=== PATIENT | male | born 1980 | race Caucasian/White ===

== ENCOUNTER 2021-11-10 12:44 | Emergency (ER) | payer SELFPAY ==
[~2021-11-10] VITALS: Ht 165 cm; Wt 63.0 kg
--- NOTE | 2021-11-10 15:38 | ED Abdominal Pain ---
General Chief Complaint: Abdominal/GI Problems Stated Complaint: EPIGASTRIC PAIN Nursing Triage Note: Pt reports midline abd pain starting at 0800 this morning. Denies n/v/d. Source of Information: Patient Exam Limitations: No Limitations History of Present Illness Date Seen by Provider: Nov 10, 2021 Time Seen by Provider: 15:37 Initial Comments Private vehicle with reports of midline upper abdominal pain onset this morning. He felt fine last night. No history of this. No nausea or vomiting. Last bowel movement was today and was normal. Timing/Duration: 12 Hours Severity/Quality: Moderate Location: Generalized Abdomen Radiation: No Radiation Activities at Onset: None Allergies and Home Medications Allergies Coded Allergies: No Known Drug Allergies (Unverified , 11/10/21) Patient Home Medication List Home Medication List Reviewed: Yes Review of Systems Review of Systems Constitutional: see HPI EENTM: No Symptoms Reported Respiratory: No Symptoms Reported Cardiovascular: No Symptoms Reported Gastrointestinal: See HPI, Abdominal Pain, Nausea Genitourinary: No Symptoms Reported Musculoskeletal: no symptoms reported Skin: no symptoms reported Psychiatric/Neurological: No Symptoms Reported Endocrine: No Symptoms Reported Hematologic/Lymphatic: No Symptoms Reported Past Ayhrluh-Hzfyjo-Jhlrra Hx Patient Social History Tobacco Use?: No Substance use?: No Alcohol Use?: No Physical Exam Vital Signs Vital Signs - First Documented 11/10/21 14:52 Temp 36.9 Pulse 76 Resp 18 B/P (MAP) 128/77 (94) Pulse Ox 98 O2 Delivery Room Air Capillary Refill : Less Than 3 Seconds Height/Weight/BMI Height: '" Weight: lbs. oz. kg; 23.00 BMI Method: General Appearance: WD/WN, no apparent distress HEENT: PERRL/EOMI, normal ENT inspection Neck: non-tender, full range of motion Respiratory: no respiratory distress, no accessory muscle use Cardiovascular: regular rate, rhythm, no murmur Gastrointestinal: normal bowel sounds, soft, tenderness (Epigastric) Extremities: normal range of motion, non-tender Neurologic/Psychiatric: alert, normal mood/affect, oriented x 3 Skin: normal color, warm/dry Progress/Results/Core Measures Results/Orders Lab Results Laboratory Tests Test 11/10/21 15:54 Range/Units White Blood Count 9.9 4.3-11.0 10^3/uL Red Blood Count 5.48 4.30-5.52 10^6/uL Hemoglobin 15.2 13.3-17.7 g/dL Hematocrit 46 40-54 % Mean Corpuscular Volume 85 80-99 fL Mean Corpuscular Hemoglobin 28 25-34 pg Mean Corpuscular Hemoglobin Concent 33 32-36 g/dL Red Cell Distribution Width 13.2 10.0-14.5 % Platelet Count 249 130-400 10^3/uL Mean Platelet Volume 11.0 9.0-12.2 fL Immature Granulocyte % (Auto) 0 % Neutrophils (%) (Auto) 81 H 42-75 % Lymphocytes (%) (Auto) 14 12-44 % Monocytes (%) (Auto) 4 0-12 % Eosinophils (%) (Auto) 0 0-10 % Basophils (%) (Auto) 0 0-10 % Neutrophils # (Auto) 8.1 H 1.8-7.8 X 10^3 Lymphocytes # (Auto) 1.4 1.0-4.0 X 10^3 Monocytes # (Auto) 0.4 0.0-1.0 X 10^3 Eosinophils # (Auto) 0.0 0.0-0.3 10^3/uL Basophils # (Auto) 0.0 0.0-0.1 10^3/uL Immature Granulocyte # (Auto) 0.0 0.0-0.1 10^3/uL Prothrombin Time 12.7 12.2-14.7 SEC INR Comment 0.9 0.8-1.4 Sodium Level 143 135-145 MMOL/L Potassium Level 4.1 3.6-5.0 MMOL/L Chloride Level 104 98-107 MMOL/L Carbon Dioxide Level 24 21-32 MMOL/L Anion Gap 15 H 5-14 MMOL/L Blood Urea Nitrogen 10 7-18 MG/DL Creatinine 0.81 0.60-1.30 MG/DL Estimat Glomerular Filtration Rate 115 BUN/Creatinine Ratio 12 Glucose Level 118 H 70-105 MG/DL Calcium Level 10.0 8.5-10.1 MG/DL Corrected Calcium 9.7 8.5-10.1 MG/DL Total Bilirubin 0.5 0.1-1.0 MG/DL Aspartate Amino Transf (AST/SGOT) 20 5-34 U/L Alanine Aminotransferase (ALT/SGPT) 26 0-55 U/L Alkaline Phosphatase 94 40-136 U/L Total Protein 7.6 6.4-8.2 GM/DL Albumin 4.4 3.2-4.5 GM/DL Lipase 14 8-78 U/L Serum Alcohol < 10 <10 MG/DL My Orders Orders - MERLENE FRY [employer] TECHNICIAN Us Gallbladder [id number] (11/10/21 15:34) Lipase (11/10/21 15:34) Cbc With Automated Diff (11/10/21 15:34) Comprehensive Metabolic Panel (11/10/21 15:34) Ed Iv/Invasive Line Start (11/10/21 15:34) Protime With Inr (11/10/21 15:34) Alcohol (11/10/21 15:34) Fentanyl Inj (Sublimaze Injection) (11/10/21 15:45) Antacid Suspension (Mylanta Suspension (11/10/21 16:15) Lidocaine 2% Viscous 15 Ml (Xylocaine Vi (11/10/21 16:15) Acute Abd Series (11/10/21 16:12) Medications Given in ED Current Medications Medications Dose Ordered Sig/Gerardo Route Start Time Stop Time Status Last Admin Dose Admin Al Hydrox/Mg Hydrox/Simethicone 30 ml ONCE ONCE PO 11/10/21 16:15 11/10/21 16:16 DC 11/10/21 16:56 30 ML Fentanyl Citrate 50 mcg ONCE ONCE IVP 11/10/21 15:45 11/10/21 15:46 DC 11/10/21 15:45 50 MCG Lidocaine HCl 15 ml ONCE ONCE PO 11/10/21 16:15 11/10/21 16:16 DC 11/10/21 16:56 15 ML Vital Signs/I&O 11/10/21 14:52 Temp 36.9 Pulse 76 Resp 18 B/P (MAP) 128/77 (94) Pulse Ox 98 O2 Delivery Room Air Blood Pressure Mean: 94 Departure Communication (Admissions) 1713- feeling much better at this time after the GI cocktail. Gallbladder ultrasound unremarkable acute abdominal series unremarkable labs unremarkable. He states that he awakens at night quite frequently with a hungry sensation in his stomach. Discussed with him using language line to the diagnosis of GERD/pe ptic ulcer disease. I will put him on [id number] and have him follow-up with surgery for possible endoscopy. Impression Primary Impression: Peptic ulcer disease Disposition: 01 HOME, SELF-CARE Condition: Stable Departure-Patient Inst. Decision time for Depature: 17:13 Referrals: [facility] (PCP/Family) Primary Care Physician GUILLERMO BUNDY BRETT D DO KIDO, TAKAAKI MD Patient Instructions: Peptic Ulcers Scripts Pantoprazole Sodium (Protonix) 40 Mg Tablet. 40 MG PO DAILY, #30 TAB 1 Refill Prov: MERLENE FRY APRN 11/10/21 Work/School Note: Work Release Form Date Seen in the Emergency Department: Nov 10, 2021 Return to Work: Nov 11, 2021 MERLENE FRY APRN Nov 10, 2021 15:38
--- NOTE | 2021-11-10 15:43 | ED Abdominal Pain ---
General Chief Complaint: Abdominal/GI Problems Stated Complaint: EPIGASTRIC PAIN Nursing Triage Note: Pt reports midline abd pain starting at 0800 this morning. Denies n/v/d. History of Present Illness Date Seen by Provider: Nov 10, 2021 Time Seen by Provider: 15:30 Initial Comments PT ARRIVED BY PRIVATE VEHICLE WITH CHIEF COMPLAINT OF ABDOMINAL PAIN. PT WAS ALERT, ORIENTED X4 AND AMBULATORY. PT STATED ONSET WAS 0900 THIS MORNING ABOUT 30 MINUTES AFTER EATING HIS BREAKFAST (FRUITS). PT LOCALIZES HIS PAIN TO BE LOCATED AT THE EPIGASTRIC REGION. PT STATED IS IS TENDER AND RATES SEVERITY AT A 9/10. PT DENIES ANY PAIN ON LEFT OR RIGHT LOWER QUADRANTS. PT STATED THAT 3 HOURS AGO HE HAD "GAS" PAIN LOCATED IN THAT REGION, BUT WENT AWAY AND HAS HAD PAIN SINCE. PT HAS HAD NORMAL BOWEL MOVEMENTS TODAY AND YESTERDAY. PT DENIES ANY NAUSEA, VOMITING, OR DIARRHEA. PT DENIES EVER HAVING THIS PAIN BEFORE. Timing/Duration: 4-6 Hours (0900 THIS MORNING) Severity/Quality: Severe, Other (9/10 ON PAIN SCALE, COMES AND GOES) Location: Epigastric Radiation: No Radiation Activities at Onset: Other (AFTER EATING HIS BREAKFAST THIS MORNING) Associated Symptoms: Heartburn; No Nausea/Vomiting Allergies and Home Medications Allergies Coded Allergies: No Known Drug Allergies (Unverified , 11/10/21) Patient Home Medication List Pantoprazole Sodium (Protonix) 40 Mg Tablet., 40 MG PO DAILY Prescribed by: MERLENE FRY on 11/10/21 9307 Review of Systems Review of Systems Constitutional: no symptoms reported, see HPI EENTM: No Symptoms Reported, See HPI Respiratory: No Symptoms Reported, See HPI Cardiovascular: No Symptoms Reported, See HPI Gastrointestinal: Abdominal Pain; Denies Constipated, Denies Diarrhea, Denies Nausea, Denies Vomiting Genitourinary: No Symptoms Reported, See HPI Musculoskeletal: no symptoms reported, see HPI Skin: no symptoms reported, see HPI Psychiatric/Neurological: No Symptoms Reported, See HPI Endocrine: No Symptoms Reported, See HPI Hematologic/Lymphatic: No Symptoms Reported, See HPI Past Saaqozn-Kcejji-Dayhro Hx Patient Social History Tobacco Use?: No Substance use?: No Alcohol Use?: No Physical Exam Vital Signs Vital Signs - First Documented 11/10/21 14:52 Temp 36.9 Pulse 76 Resp 18 B/P (MAP) 128/77 (94) Pulse Ox 98 O2 Delivery Room Air Capillary Refill : Less Than 3 Seconds Height/Weight/BMI Height: '" Weight: lbs. oz. kg; 23.00 BMI Method: General Appearance: mild distress Neck: full range of motion, normal inspection Respiratory: normal breath sounds, no respiratory distress, no accessory muscle use Cardiovascular: normal peripheral pulses, regular rate, rhythm Gastrointestinal: normal bowel sounds, tenderness Extremities: normal range of motion, normal inspection Back: normal inspection Neurologic/Psychiatric: alert, normal mood/affect Skin: normal color, warm/dry Progress/Results/Core Measures Results/Orders Lab Results Laboratory Tests Test 11/10/21 15:54 Range/Units White Blood Count 9.9 4.3-11.0 10^3/uL Red Blood Count 5.48 4.30-5.52 10^6/uL Hemoglobin 15.2 13.3-17.7 g/dL Hematocrit 46 40-54 % Mean Corpuscular Volume 85 80-99 fL Mean Corpuscular Hemoglobin 28 25-34 pg Mean Corpuscular Hemoglobin Concent 33 32-36 g/dL Red Cell Distribution Width 13.2 10.0-14.5 % Platelet Count 249 130-400 10^3/uL Mean Platelet Volume 11.0 9.0-12.2 fL Immature Granulocyte % (Auto) 0 % Neutrophils (%) (Auto) 81 H 42-75 % Lymphocytes (%) (Auto) 14 12-44 % Monocytes (%) (Auto) 4 0-12 % Eosinophils (%) (Auto) 0 0-10 % Basophils (%) (Auto) 0 0-10 % Neutrophils # (Auto) 8.1 H 1.8-7.8 X 10^3 Lymphocytes # (Auto) 1.4 1.0-4.0 X 10^3 Monocytes # (Auto) 0.4 0.0-1.0 X 10^3 Eosinophils # (Auto) 0.0 0.0-0.3 10^3/uL Basophils # (Auto) 0.0 0.0-0.1 10^3/uL Immature Granulocyte # (Auto) 0.0 0.0-0.1 10^3/uL Prothrombin Time 12.7 12.2-14.7 SEC INR Comment 0.9 0.8-1.4 Sodium Level 143 135-145 MMOL/L Potassium Level 4.1 3.6-5.0 MMOL/L Chloride Level 104 98-107 MMOL/L Carbon Dioxide Level 24 21-32 MMOL/L Anion Gap 15 H 5-14 MMOL/L Blood Urea Nitrogen 10 7-18 MG/DL Creatinine 0.81 0.60-1.30 MG/DL Estimat Glomerular Filtration Rate 115 BUN/Creatinine Ratio 12 Glucose Level 118 H 70-105 MG/DL Calcium Level 10.0 8.5-10.1 MG/DL Corrected Calcium 9.7 8.5-10.1 MG/DL Total Bilirubin 0.5 0.1-1.0 MG/DL Aspartate Amino Transf (AST/SGOT) 20 5-34 U/L Alanine Aminotransferase (ALT/SGPT) 26 0-55 U/L Alkaline Phosphatase 94 40-136 U/L Total Protein 7.6 6.4-8.2 GM/DL Albumin 4.4 3.2-4.5 GM/DL Lipase 14 8-78 U/L Serum Alcohol < 10 <10 MG/DL My Orders Orders - MERLENE FRY APRN Us Gallbladder [id number] (11/10/21 15:34) Lipase (11/10/21 15:34) Cbc With Automated Diff (11/10/21 15:34) Comprehensive Metabolic Panel (11/10/21 15:34) Ed Iv/Invasive Line Start (11/10/21 15:34) Protime With Inr (11/10/21 15:34) Alcohol (11/10/21 15:34) Fentanyl Inj (Sublimaze Injection) (11/10/21 15:45) Antacid Suspension (Mylanta Suspension (11/10/21 16:15) Lidocaine 2% Viscous 15 Ml (Xylocaine Vi (11/10/21 16:15) Acute Abd Series (11/10/21 16:12) Medications Given in ED Current Medications Medications Dose Ordered Sig/Gerardo Route Start Time Stop Time Status Last Admin Dose Admin Al Hydrox/Mg Hydrox/Simethicone 30 ml ONCE ONCE PO 11/10/21 16:15 11/10/21 16:16 DC 11/10/21 16:56 30 ML Fentanyl Citrate 50 mcg ONCE ONCE IVP 11/10/21 15:45 11/10/21 15:46 DC 11/10/21 15:45 50 MCG Lidocaine HCl 15 ml ONCE ONCE PO 11/10/21 16:15 11/10/21 16:16 DC 11/10/21 16:56 15 ML Vital Signs/I&O 11/10/21 14:52 Temp 36.9 Pulse 76 Resp 18 B/P (MAP) 128/77 (94) Pulse Ox 98 O2 Delivery Room Air Blood Pressure Mean: 94 Departure Departure-Patient Inst. Referrals: [facility] (PCP/Family) Primary Care Physician Scripts Pantoprazole Sodium (Protonix) 40 Mg Tablet. 40 MG PO DAILY, #30 TAB 1 Refill Prov: MERLENE FRY APRN 11/10/21 MERLENE FRY APRN Nov 10, 2021 15:43
[2021-11-10] MEDS ORDERED: fentaNYL INJ 100 MCG/2 ML AMP IVP ONE (15:45)
[2021-11-10 16:04] LABS: BASOPHILS % (AUTO) 0 % (0-10); EOSINOPHILS % (AUTO) 0 % (0-10); HEMATOCRIT 46 % (40-54); HEMOGLOBIN 15.2 g/dL (13.3-17.7); LYMPHOCYTES # (AUTO) 1.4 X 10^3 (1.0-4.0); LYMPHOCYTES % (AUTO) 14 % (12-44); MEAN CORPUSCULAR HEMOGLOBIN 28 pg (25-34); MEAN CORPUSCULAR HGB CONC 33 g/dL (32-36); MEAN CORPUSCULAR VOLUME 85 fL (80-99); MONOCYTES # (AUTO) 0.4 X 10^3 (0.0-1.0); MONOCYTES % (AUTO) 4 % (0-12); NEUTROPHILS # (AUTO) 8.1 X 10^3 (1.8-7.8); NEUTROPHILS % (AUTO) 81 % (42-75); PLATELET COUNT 249 10^3/uL (130-400); WHITE BLOOD COUNT 9.9 10^3/uL (4.3-11.0)
[2021-11-10 16:05] LABS: ALBUMIN 4.4 GM/DL (3.2-4.5); CHLORIDE 104 MMOL/L (98-107); POTASSIUM 4.1 MMOL/L (3.6-5.0); SODIUM 143 MMOL/L (135-145)
[2021-11-10 16:08] LABS: GLUCOSE 118 MG/DL (70-105); TOTAL PROTEIN 7.6 GM/DL (6.4-8.2)
[2021-11-10 16:09] LABS: CARBON DIOXIDE 24 MMOL/L (21-32)
[2021-11-10 16:10] LABS: BILIRUBIN,TOTAL 0.5 MG/DL (0.1-1.0)
[2021-11-10 16:11] LABS: ALKALINE PHOSPHATASE 94 U/L (40-136)
[2021-11-10 16:12] LABS: CREATININE SERUM 0.81 MG/DL (0.60-1.30); GFR ESTIMATED 115
[2021-11-10 16:13] LABS: BUN/CREATININE RATIO 12
[2021-11-10 16:15] LABS: ALANINE AMINOTRANSFERASE 26 U/L (0-55); LIPASE 14 U/L (8-78)
[2021-11-10] MEDS ORDERED: LIDOCAINE 2% VISCOUS 15 ML UDC PO ONE (16:15)
[2021-11-10] MEDS ORDERED: ANTACID SUSP 30 ML UDC (MYLANTA) PO ONE (16:15)
--- NOTE | 2021-11-10 16:24 | Diagnostic Imaging Report ---
PROCEDURE: US Gallbladder. TECHNIQUE: Multiple real-time grayscale images were obtained over the right upper quadrant in various projections. INDICATION: Epigastric pain. COMPARISON: None available. FINDINGS: The liver is normal in size and echogenicity. There is no focal hepatic mass. The main portal vein is patent with antegrade flow. The gallbladder is distended without gallstones, wall thickening, or pericholecystic fluid. The common bile duct measures up to 0.3 cm in diameter. No intrahepatic biliary dilation. The visualized portions of the pancreas are normal. Portions of the head and tail are obscured by overlying bowel gas. The right kidney is normal in size. No hydronephrosis, shadowing calculi, or suspicious mass lesion. IMPRESSION: Normal right upper quadrant ultrasound. Dictated by: Dictated on workstation # [id number]
[2021-11-10 16:31] LABS: INR 0.9 (0.8-1.4); PROTHROMBIN TIME PATIENT 12.7 SEC (12.2-14.7)
--- NOTE | 2021-11-10 16:47 | Diagnostic Imaging Report ---
EXAMINATION: Abdominal series and chest radiograph HISTORY: pain epigastric COMPARISON: None available. FINDINGS: Heart size and pulmonary vasculature are normal. The lungs are clear without consolidation, pleural effusion, or pneumothorax. The osseous structures are intact. There is moderate amount of gas and stool throughout the colon. Nonobstructive bowel gas pattern. No radiopaque foreign body. The osseous structures are intact. IMPRESSION: No acute abnormality in the chest or abdomen. Dictated by: Dictated on workstation # [id number]
[2021-11-10] MEDS ORDERED: PANT40TA2 PO (17:14)
[2021-11-10 17:26] VITALS: BP 126/98
== END 2021-11-10 17:26 | disposition home or self-care (01) ==
LOC: ER 12:48
DX: K27.9 Peptic ulcer, site unspecified, unspecified as acute or chronic, without hemorrhage or perforation (principal)
CPT/HCPCS: 74022; 76705; 80053; 83690; 85025; 85610; 99284; G0480; 36415; 80320